=== PATIENT | male | born 1950 | race Caucasian/White ===

== ENCOUNTER 2016-07-30 10:44 | Inpatient (IN) | payer MEDICARE ==
[2016-07-22 15:16] LABS: HEMATOCRIT 41.5 % (40.0-51.0); HEMOGLOBIN 14.4 g/dL (13.6-17.8)
[2016-07-22 15:25] LABS: BUN (BLOOD UREA NITROGEN) 14 MG/DL (6-23); CALCIUM, SERUM 9.3 MG/DL (8.5-10.4); CHLORIDE, SERUM 108 MMOL/L (96-112); CO2 (CARBON DIOXIDE) 27 MMOL/L (24-34); CREATININE 0.98 MG/DL (0.70-1.30); GFR AFRICAN AMERICAN 93 ML/MIN (>=60); GFR NON AFRICAN AMERICAN 80 ML/MIN (>=60); GLUCOSE, SERUM 91 MG/DL (60-99); POTASSIUM, SERUM 4.2 MMOL/L (3.5-5.3); SODIUM, SERUM 144 MMOL/L (135-148)
--- NOTE | ~2016-07-30 | OP ---
Record Of Operation [facility] [address] [place]. [address] NAME: ALE OLSEN : 50 STATUS : ADM IN PAT#: [id number] AGE: 66 ADM/REG DATE : 07/30/16 MR#: [id number] REPORT SERV DATE: 07/30/16 DICTATED BY: DANYEL ZAMORANO DATE: 07/30/16 REPORT STATUS : Draft TRANSCRIBED BY: MODL DATE: 07/30/16 DATE OF PROCEDURE: 07/30/2016 PREOPERATIVE DIAGNOSIS: Prostate cancer. POSTOPERATIVE DIAGNOSIS: Prostate cancer. PROCEDURES: Robotic assisted laparoscopic radical prostatectomy. SURGEON: Danyel Zamorano M.D. GRINDER SET UP OPERATOR CENTERLESS: LAURENCE Mg. ANESTHESIA: General. PREOPERATIVE INDICATIONS: A 66-year-old male presented with a negative family history of prostate cancer and a PSA of 13.5. An MRI identified anterior lesion at the base bilaterally. MRI-targeted biopsies identified a Zay 7, 3+4 prostate cancer. There was no evidence of T3 disease or lymphadenopathy. PTEN suppression was lost, but there was no over-expression of ERG fusion. After reviewing his options, risks, alternatives, and benefits, he elected surgical management with a robotic approach. DESCRIPTION OF OPERATIVE PROCEDURE: Following adequate general anesthesia, the patient was placed in a modified lithotomy position, well padded and secured to the table and placed in a steep Trendelenburg position. He was noted to be safely secured to the table and was returned to a level position where he was prepped and draped in usual sterile fashion. A 16 Swedish catheter was placed into the bladder from the operative field. A pneumoperitoneum was achieved with a Veress needle. A 12 mm port was placed in the left upper quadrant with the Optiview system. The camera was placed into the abdomen. The abdomen inspected and there were no abnormal findings. Under direct vision, the four robotic ports were placed as well as a left lower quadrant 8 mm port. The patient was then returned to a Trendelenburg position and docked to the robot. The bladder was taken down by incising laterally along the median umbilical ligaments to the level of vas deferens bilaterally with the electrocautery heriberto. The space of Retzius was developed bluntly and sharply. There were some adhesions in this space due to previous anterior lumbar fusion. The endopelvic fascia was incised bilaterally and the levator muscle swept off the lateral surface of the prostate bilaterally. The dorsal vein complex was dissected out, controlled, and divided with an endovascular LAY stapler. The bladder neck was then incised at its junction with the base of the prostate with the electrocautery spatula. The bladder was entered. The catheter was grasped with a ProGrasp grasper and used for anterior retraction on the prostate. The posterior bladder neck was developed and incised with the electrocautery spatula. A plane was bluntly developed between the posterior bladder neck and prostate. Anterior Denonvilliers fascia was incised to expose the vas deferens and seminal vesicles. The vas deferens were dissected out Record Of Operation [facility] [address] [facility] [place]. [address] NAME: ALE OLSEN : 50 STATUS : ADM IN PAT#: [id number] AGE: 66 ADM/REG DATE : 07/30/16 MR#: [id number] REPORT SERV DATE: 07/30/16 DICTATED BY: DANYEL ZAMORANO DATE: 07/30/16 REPORT STATUS : Draft TRANSCRIBED BY: BROOKLYNN DATE: 07/30/16 bluntly, divided sharply, and the ends of the vas deferens grasped with the ProGrasp grasper for additional anterior retraction on the prostate. The seminal vesicles were dissected out bluntly. Their blood supply controlled with interlocking clips and then divided sharply at their base. The bladder neck was inspected and did require reconstruction with two figure- of-eight 3-0 Vicryl sutures at the 3 and 9 o'clock position taking care to avoid the ureteral orifices. Posterior Denonvilliers fascia was incised and a plane was bluntly developed between the rectum and prostate. The levator fascia was incised bilaterally and the neurovascular bundles bluntly and sharply dissected away from the posterior lateral surface of the prostate. The pedicles were controlled with interlocking clips and divided sharply with a round-tip scissors. The urethra was dissected out with the round-tip scissors. The dorsal vein complex was secured to the pubic periosteum with a [id number] 2-0 Monocryl suture. The urethra was then divided sharply at the prostatourethral junction. The apical attachments were released and the prostate was freed. The prostate was placed in an EndoCatch sac and placed out of the view of the operative field. Anterior fat was also dissected separately and sent for separate pathology review in view of the anterior location of the tumor. The pelvis was irrigated with sterile water and antibiotic solution, carefully inspected. There was excellent hemostasis and no apparent rectal injury. Posterior Denonvilliers fascia was reapproximated to the posterior urethral plate with a running 3-0 V-Loc suture in a Jon stitch fashion. The urethrovesical anastomosis was then performed with running 3-0 V-Loc suture over a 20-Swedish catheter. The balloon was filled with 10 mL of sterile water. The bladder was irrigated with sterile water, there was a watertight anastomosis. A 19 Azki drain was passed through one of the robotic ports and placed into the pelvis. The port was removed, its exit site demonstrating good hemostasis. The drain was fixed to the skin with 2-0 Prolene suture. The patient was de-docked from the robot returned to a level position. The remaining trocars were removed under direct vision, their exit sites demonstrating good hemostasis. The periumbilical port was used to guide a transverse fascial incision to allow intact retrieval of the specimen. This was then closed with 6 interrupted #1 Ethibond sutures. The periumbilical wound and port sites were irrigated with antibiotic solution and skin edges reapproximated with skin clips. The drain was left to grenade suction. The catheter was left to gravity drainage. Bandages were applied and the procedure was concluded. He was awakened from his anesthesia, had tolerated it well and transferred to the recovery room in satisfactory condition. STEPHANIE/BROOKLYNN Danyel Zamorano M.D. / [id number] CC: Record Of Operation [address] [address] NAME: ALE OLSEN : 50 STATUS : ADM IN [facility]#: [id number] AGE: 66 ADM/REG DATE : 07/30/16 MR#: [id number] REPORT SERV DATE: 07/30/16 DICTATED BY: DANYEL ZAMORANO DATE: 07/30/16 REPORT STATUS : Draft TRANSCRIBED BY: MODL DATE: 07/30/16 Danyel Zamorano M.D.
[~2016-07-30 10:44] MED LIST: ANADS PO; ASAB PO; BEN25 PO; COMBIVENT RESPIM4 GM INH; LEVOTHYROXIN25 MCG PO; LORTAB10 PO; METHOC500B PO; MUCINEX600 MG PO; MVI PO; NEUR300 PO; NITROSTAT0.4 MG SL; NORCO1 TA1 PO; NORCO1 TAB PO; PRINZIDE1 TA1 PO; PRINZIDE1 TAB PO; PROVENTSOL INH; SPIRIVA RESPIMAT INH; ZANTAC 75 PO
[2016-07-30 17:22] LABS: HEMATOCRIT 40.9 % (40.0-51.0); HEMOGLOBIN 14.2 g/dL (13.6-17.8)
[2016-07-30 17:34] LABS: CREATININE 1.06 MG/DL (0.70-1.30); POTASSIUM, SERUM 4.5 MMOL/L (3.5-5.3)
== END 2016-07-31 16:51 | disposition home or self-care (01) | DRG 708 ==
LOC: SDC/OF 10:44 → PACU 16:49 → 4SO 18:19
PROVIDERS: Urology
PROC: 8E0W4CZ Robotic Assisted Procedure of Trunk Region, Percutaneous Endoscopic Approach (ICD-10-PCS; 2016-07-30)
PROC: 0VT04ZZ Resection of Prostate, Percutaneous Endoscopic Approach (ICD-10-PCS; principal; 2016-07-30 12:30)
DX: C61 Malignant neoplasm of prostate (principal)
CPT/HCPCS: 80048; 82565; 84132; 85014; 85018; 88304; 88309; 88342; 88344; 93005; A9270-GY; C1729; J0690; J1885; J2250; J2405; J2710; J2795; J3010; J3370